=== PATIENT | male | born 1995 | race Two or more races ===

== ENCOUNTER 2024-11-29 01:38 | Emergency (ER) | payer SELFPAY ==
[~2024-11-29] VITALS: Ht 170.2 cm; Wt 88.5 kg
[2024-11-29 03:10] VITALS: BP 137/95; TEMP 98; O2SAT 99
== END 2024-11-29 03:38 | disposition home or self-care (01) ==
LOC: ER 01:41
DX: G89.29 Other chronic pain (principal); M79.644 Pain in right finger(s)